=== PATIENT | female | born 1980 | race Caucasian/White ===

== ENCOUNTER 2018-09-14 15:55 | Emergency (ER) | payer BC ==
[~2018-09-14] VITALS: Ht 162.6 cm; Wt 98.9 kg
[2018-09-14] MEDS ORDERED: TRAMADOL 50 MG50 MG PO (16:38)
[2018-09-14 16:50] VITALS: BP 153/79
== END 2018-09-14 17:14 | disposition home or self-care (01) ==
LOC: M.ERS 15:55
DX: S60.051A Contusion of right little finger without damage to nail, initial encounter (principal); W23.0XXA Caught, crushed, jammed, or pinched between moving objects, initial encounter; Y93.89 Activity, other specified; Y92.89 Other specified places as the place of occurrence of the external cause; Y99.8 Other external cause status

== ENCOUNTER 2018-10-14 17:47 | Emergency (ER) | payer BC ==
[~2018-10-14] VITALS: Ht 157.5 cm; Wt 88.5 kg
[~2018-10-14 17:47] MED LIST: TRAMADOL 50 MG50 MG PO
[2018-10-14] MEDS ORDERED: MEDROLDOSEPACK PO (18:48)
[2018-10-14 19:06] VITALS: BP 163/81
== END 2018-10-14 19:06 | disposition home or self-care (01) ==
LOC: M.ERS 17:47
DX: S20.212A Contusion of left front wall of thorax, initial encounter (principal); F17.210 Nicotine dependence, cigarettes, uncomplicated; Z87.442 Personal history of urinary calculi; Z90.49 Acquired absence of other specified parts of digestive tract; X50.9XXA Other and unspecified overexertion or strenuous movements or postures, initial encounter; Y93.89 Activity, other specified; Y92.89 Other specified places as the place of occurrence of the external cause; Y99.8 Other external cause status